=== PATIENT | male | born 1945 | race Caucasian/White ===

== ENCOUNTER 2016-09-18 15:59 | Observation (INO) | payer BC, OTHER ==
[2016-09-18] MEDS ORDERED: NS 1,000 ML IV ONE (16:07)
[2016-09-18] MEDS ORDERED: DIAZEPAM 5 MG TAB PO ONE (16:07)
[2016-09-18] MEDS ORDERED: diphenhydrAMINE 25 MG CAP PO ONE ×2 (16:07→16:43)
[2016-09-18] MEDS ORDERED: FAMOTIDINE 20 MG TAB PO ONE (16:07)
[2016-09-18] MEDS ORDERED: ASPIRIN EC 325 MG TAB PO ONE ×2 (16:07→16:44)
[2016-09-18] MEDS ORDERED: fentaNYL 100 MCG/2 ML INJ ONE (16:19)
[2016-09-18] MEDS ORDERED: IOPAMIDOL (ISOVUE-370) 150 ML BTL IV ONE (16:19)
[2016-09-18] MEDS ORDERED: LIDOCAINE 1% 30 ML SDV ONE (16:19)
[2016-09-18] MEDS ORDERED: MIDAZOLAM 2 MG/2 ML VIAL ONE (16:19)
[2016-09-18] MEDS ORDERED: FAMOTIDINE 20 MG TAB ONE (16:43)
[2016-09-18] MEDS ORDERED: DIAZEPAM 5 MG TAB ONE (16:44)
[2016-09-18] MEDS ORDERED: VERAPAMIL 5 MG/2 ML VIAL ONE (16:52)
[2016-09-18] MEDS ORDERED: HEPARIN 10,000 UNIT/10 ML MDV ONE (16:52)
[2016-09-18 17:03] LABS: % IMMATURE GRANULYOCYTES 0.4 % (0.0-1.1); ABSOLUTE IMMATURE GRANULOCYTES 0.03 10^3/uL (0.00-0.10); ADD DIFF? NO; ADD MORPH? NO; ADD SCAN? NO; ATYPICAL LYMPHOCYTE FLAG 0 (0-99); FRAGMENT RBC FLAG 0 (0-99); HEMATOCRIT 45.3 % (40.0-51.0); HEMOGLOBIN 15.6 g/dL (13.7-17.5); LEFT SHIFT FLG 0 (0-99); LIPEMIA HEMOLYSIS FLAG 90 (0-99); MEAN CELL HEMOGLOBIN 30.5 pg (27.9-34.1); MEAN CELL HEMOGLOBIN CONCENTR. 34.4 g/dL (32.4-36.7); MEAN CELL VOLUME 88.5 fL (81.5-99.8); PLATELET CLUMPS FLAG 0 (0-99); PLATELET COUNT 306 10^3/uL (150-400); RED BLOOD CELL COUNT 5.12 10^6/uL (4.40-6.38); RED CELL DISTRIBUTION WIDTH 12.3 % (11.5-15.2)
[2016-09-18 17:11] LABS: INR 0.99 (0.83-1.16)
[2016-09-18 17:30] LABS: ANION GAP 8 mEq/L (8-16); CALCIUM 9.3 mg/dL (8.5-10.4); CARBON DIOXIDE 26 mEq/l (22-31); CHLORIDE 106 mEq/L (97-110); CHOLESTEROL 156 mg/dL (140-220); CHOLESTEROL/HDL RATIO 2.48 RATIO (1.00-4.97); CREATININE 0.9 mg/dL (0.7-1.3); GLOMERULAR FILTRATION RATE > 60; GLUCOSE 80 mg/dL (70-100); HIGH DENSITY LIPOPROTEIN 63 mg/dL (40-65); LDL/HDL RATIO 1.06 RATIO (1.00-3.64); LOW DENSITY LIPOPROTEIN 67 mg/dL (80-100); NON-HIGH DENSITY LIPOPROTEIN 93 mg/dL (90-129); POTASSIUM 4.2 mEq/L (3.5-5.2); SODIUM 140 mEq/L (134-144); TRIGLYCERIDE 134 mg/dL (40-150); VERY LOW DENSITY LIPOPROTEINS 26 mg/dL (8-25)
[2016-09-18] MEDS ORDERED: HYDROCODONE/APAP 5/325 TAB PO PRN (17:43)
[2016-09-18] MEDS ORDERED: ATROPINE SULFATE 1 MG/10 ML SYR IVP PRN (17:43)
[2016-09-18] MEDS ORDERED: OXYCODONE/APAP 5/325 TAB PO PRN (17:43)
[2016-09-18] MEDS ORDERED: NITROGLYCERIN 0.4 MG BTL SL PRN (17:43)
[2016-09-18] MEDS ORDERED: ONDANSETRON 4 MG/2 ML VIAL IVP PRN (17:43)
--- NOTE | 2016-09-18 17:46 | PDDXCAT ---
Diagnostic Cath Note - . Date: 09/18/16 Physical Therapy Nurse: Milad Indication: CCC Class III and IV angina on medical treatment - Procedure Access: left wrist Procedure: left heart catheterization, coronary angiography - Materials Left Heart Cath size: 5F Left Heart Cath materials: standard multipack (JL4, JR4, pigtail) - Findings-Left Heart Catheterization LM: unobstructed LAD: LAD stent in the mid and distal vessel widely patent. Aneurysmal dilatation proximal to the stent. Principal diagonal stent widely patent. 2nd diagonal stent widely patent. LCX: Unobstructed RCA: diffuse 30% stenosis distally. EDP: 10 mm of mercury LVEF: 65 Wall motion: no regional wall motion abnormalities Complications: none Estimated blood loss: <50ml Closure method: TR Band Assessment: 1. Multivessel coronary artery disease. 2. Widely patent site of prior stenting. 3. Preserved LV systolic function with normal filling pressures. Abnormal EKG of uncertain etiology Patient Problems: Problems Problem Status Onset Status post insertion of drug-eluting stent into left anterior descending (LAD) artery Acute Coronary artery disease Acute Chest pain Acute
[2016-09-18 19:36] LABS: TROPONIN I < 0.012 ng/mL (0-0.034)
[2016-09-18 19:49] VITALS: RESP 20; TEMP 98.6; O2SAT 93
[2016-09-18 21:44] VITALS: BP 110/79; PULSE 44
== END 2016-09-18 21:56 | disposition home or self-care (01) ==
LOC: F2W 16:20
PROVIDERS: ADMIT Internal Medicine Interventional Cardiology; ATTEND Internal Medicine Interventional Cardiology
PROC: 4A020N7 Measurement of Cardiac Sampling and Pressure, Left Heart, Open Approach (ICD-10-PCS; principal; 2016-09-18)
PROC: B2151ZZ Fluoroscopy of Left Heart using Low Osmolar Contrast (ICD-10-PCS; principal; 2016-09-18)
PROC: B2111ZZ Fluoroscopy of Multiple Coronary Arteries using Low Osmolar Contrast (ICD-10-PCS; principal; 2016-09-18)
DX: I25.119 Atherosclerotic heart disease of native coronary artery with unspecified angina pectoris (principal); I11.0 Hypertensive heart disease with heart failure; E78.5 Hyperlipidemia, unspecified; R94.31 Abnormal electrocardiogram [ECG] [EKG]; Z95.5 Presence of coronary angioplasty implant and graft
CPT/HCPCS: 93458; C1769; J1644; J2250; J3010; Q9967

== ENCOUNTER 2016-10-03 08:11 | Day surgery (SDC) | payer BC, OTHER ==
[2016-10-03] MEDS ORDERED: ASPIRIN EC 325 MG TAB PO ONE (08:16)
[2016-10-03] MEDS ORDERED: FAMOTIDINE 20 MG TAB PO ONE (08:16)
[2016-10-03] MEDS ORDERED: NS 1,000 ML IV ONE (08:16)
[2016-10-03] MEDS ORDERED: diphenhydrAMINE 25 MG CAP PO ONE ×2 (08:16→08:34)
[2016-10-03] MEDS ORDERED: DIAZEPAM 5 MG TAB PO ONE (08:16)
--- NOTE | 2016-10-03 08:32 | CPEKG ---
Heart Rate: 50 RR Interval: 1200 P-R Interval: 164 QRSD Interval: 106 QT Interval: 524 QTC Interval: 478 P [place]: 63 QRS [place]: -81 T Wave [place]: -86 EKG Severity - ABNORMAL ECG - EKG Impression: SINUS RHYTHM EKG Impression: LEFT ANTERIOR FASCICULAR BLOCK EKG Impression: CONSIDER ANTEROSEPTAL INFARCT EKG Impression: ABNORMAL T, CONSIDER ISCHEMIA, DIFFUSE LEADS EKG Impression: BORDERLINE PROLONGED QT INTERVAL Electronically Signed By: Hayden Givens 03-Oct-2016 12:19:14
[2016-10-03] MEDS ORDERED: FAMOTIDINE 20 MG TAB ONE (08:34)
[2016-10-03] MEDS ORDERED: DIAZEPAM 5 MG TAB ONE (08:34)
[2016-10-03] MEDS ORDERED: ASPIRIN EC 81 MG TAB PO ONE (08:35)
[2016-10-03 08:58] LABS: % IMMATURE GRANULYOCYTES 0.5 % (0.0-1.1); ABSOLUTE IMMATURE GRANULOCYTES 0.04 10^3/uL (0.00-0.10); ADD DIFF? NO; ADD MORPH? NO; ADD SCAN? NO; ATYPICAL LYMPHOCYTE FLAG 0 (0-99); FRAGMENT RBC FLAG 0 (0-99); HEMATOCRIT 46.4 % (40.0-51.0); HEMOGLOBIN 15.8 g/dL (13.7-17.5); LEFT SHIFT FLG 0 (0-99); LIPEMIA HEMOLYSIS FLAG 90 (0-99); MEAN CELL HEMOGLOBIN 29.9 pg (27.9-34.1); MEAN CELL HEMOGLOBIN CONCENTR. 34.1 g/dL (32.4-36.7); MEAN CELL VOLUME 87.9 fL (81.5-99.8); PLATELET CLUMPS FLAG 10 (0-99); PLATELET COUNT 302 10^3/uL (150-400); RED BLOOD CELL COUNT 5.28 10^6/uL (4.40-6.38); RED CELL DISTRIBUTION WIDTH 12.5 % (11.5-15.2)
[2016-10-03] MEDS ORDERED: LIDOCAINE 1% 30 ML SDV ONE (09:00)
[2016-10-03] MEDS ORDERED: fentaNYL 100 MCG/2 ML INJ ONE (09:00)
[2016-10-03] MEDS ORDERED: MIDAZOLAM 2 MG/2 ML VIAL ONE (09:01)
[2016-10-03] MEDS ORDERED: IOPAMIDOL (ISOVUE-370) 150 ML BTL IV ONE ×2 (09:01→10:30)
[2016-10-03] MEDS ORDERED: BIVALIRUDIN 250 MG/5 ML VIAL IV ONE (09:05)
[2016-10-03] MEDS ORDERED: NITROGLYCERIN 1,500 MCG/15 ML VIAL MISC ONE (09:05)
[2016-10-03 09:24] LABS: INR 0.99 (0.83-1.16)
[2016-10-03 09:29] LABS: ANION GAP 8 mEq/L (8-16); CALCIUM 9.1 mg/dL (8.5-10.4); CARBON DIOXIDE 24 mEq/l (22-31); CHLORIDE 108 mEq/L (97-110); CHOLESTEROL 155 mg/dL (140-220); CHOLESTEROL/HDL RATIO 2.54 RATIO (1.00-4.97); CREATININE 0.9 mg/dL (0.7-1.3); GLOMERULAR FILTRATION RATE > 60; GLUCOSE 97 mg/dL (70-100); HIGH DENSITY LIPOPROTEIN 61 mg/dL (40-65); LDL/HDL RATIO 1.18 RATIO (1.00-3.64); LOW DENSITY LIPOPROTEIN 72 mg/dL (80-100); NON-HIGH DENSITY LIPOPROTEIN 94 mg/dL (90-129); POTASSIUM 4.6 mEq/L (3.5-5.2); SODIUM 140 mEq/L (134-144); TRIGLYCERIDE 110 mg/dL (40-150); VERY LOW DENSITY LIPOPROTEINS 22 mg/dL (8-25)
--- NOTE | 2016-10-03 12:01 | PDDXCAT ---
Diagnostic Cath Note - . Date: 10/03/16 Intervention: intravascular ultrasound *Procedure 1. selective coronary angiography 2. intravascular ultrasound (IVUS) of the LAD and LAD diagonal Indication: CCS II angina pectoris, abnormal EKG suggestive of ischemia, planned intravascular ultrasound of the LAD from a right femoral approach. Access: right femoral artery *Materials Left Heart Cath size: 7F Left Heart Cath materials: JL4, 0.014" Intuition Guide Wire, EBU4 Launcher, IVUS catheter *Findings-Selective Coronary Angiography LM: The left main bifurcates into an LAD and circumflex system and is free of flow-limiting disease or significant stenosis. LAD: There is an aneurysmal segment proximal to the mid LAD stent. There is LAD restenosis estimated to be 60% via IVUS just distal to the LAD aneurysm. There is no flow-limiting obstruction of previous stenting in the LAD or LAD/diagonal with LONNIE III flow angiographically. LCX: There are luminal irregularities consistent with atherosclerosis without flow-limiting disease with LONNIE III flow throughout. *Intervention A 7 Maltese EBU 3.5 guide catheter was used for guide catheter support. Angiomax bolus was given with a documented activated clotting time > 250 seconds. A 0.014 " Intuition Guide Wire was inserted into the distal LAD diagonal under directly fluoroscopic and angiographic guidance. Intravascular ultrasound catheter was used to perform IVUS in the first LAD diagonal. There was no evidence of flow- limiting disease. A second Intuition Guide Wire was advanced into the distal LAD. IVUS was performed in mid and proximal LAD proper. Maximal luminal stenosis was 60% in the mid LAD just distal to the LAD aneurysm. There was LONNIE III flow angiographically except at the site of the aneurysm where there was a delay in clearing of contrast from the aneurysmal segment. *Summary Complications: None Estimated blood loss: <50ml Closure method: Angioseal Assessment/Conclusion: 1. Multi-vessel [place] vessel coronary artery disease without flow-limiting obstruction. Intravascular ultrasound was performed in the mid and proximal LAD and principal diagonal branch. Maximal luminal stenosis was 60% in the LAD proper. 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 There is contrast- streaming below this lesion with abnormal flow-characteristics. If the patient' s angina does not improve or there is restenosis of the LAD and LAD diagonal stents, a CABG with SIMONS-LAD and rSVG to the diagonal would likely be a better option vs. high-risk bifurcation stenting. We could consider a trial of long- acting nitrates as an outpatient to alleviate symptoms with exertion. Patient Problems: Problems Problem Status Onset Chest pain Acute Coronary artery disease Acute Status post insertion of drug-eluting stent into left anterior descending (LAD) artery Acute
== END 2016-10-03 16:37 | disposition home or self-care (01) ==
LOC: FCATH 08:11
PROVIDERS: ATTEND Internal Medicine Cardiovascular Disease
PROC: 4A023N7 Measurement of Cardiac Sampling and Pressure, Left Heart, Percutaneous Approach (ICD-10-PCS; principal; 2016-10-03)
PROC: B2111ZZ Fluoroscopy of Multiple Coronary Arteries using Low Osmolar Contrast (ICD-10-PCS; principal; 2016-10-03)
PROC: B245ZZ3 Ultrasonography of Left Heart, Intravascular (ICD-10-PCS; principal; 2016-10-03)
PROC: B2151ZZ Fluoroscopy of Left Heart using Low Osmolar Contrast (ICD-10-PCS; principal; 2016-10-03)
DX: T82.857A Stenosis of other cardiac prosthetic devices, implants and grafts, initial encounter (principal); I25.41 Coronary artery aneurysm; I25.10 Atherosclerotic heart disease of native coronary artery without angina pectoris; R07.89 Other chest pain; I10 Essential (primary) hypertension; E78.2 Mixed hyperlipidemia; E78.5 Hyperlipidemia, unspecified
CPT/HCPCS: 92978; 93005; C1753; C1769; C1887; C1760; J0583; J1644; J2250; J3010; Q9967

== ENCOUNTER 2017-10-29 09:14 | Day surgery (SDC) | payer BC ==
[2017-10-29] MEDS ORDERED: ceFAZolin 2 GM/DEXTROSE 100 ML IV ONE (09:24)
[2017-10-29] MEDS ORDERED: LR 1,000 ML IV ONE (09:25)
[2017-10-29] MEDS ORDERED: LIDOCAINE 1% 2 ML INJ ID PRN (09:25)
--- NOTE | 2017-10-29 09:34 | PDHPUP ---
History & Physical Update H&P update statement: This history and physical update is based on an assessment of the patient which was completed after admission or registration (within 24 hours), but prior to the surgery/procedure. H&P update: H&P reviewed & patient examined, no change in patient's condition since H&P completed
[2017-10-29] MEDS ORDERED: EPINEPHrine 1 MG/ML INJ ONE (09:55)
[2017-10-29] MEDS ORDERED: BUPIVACAINE 0.25% 30 ML SDV ONE (09:55)
--- NOTE | 2017-10-29 09:58 | PDANEPAE ---
ANE History of Present Illness 72 year old male w/ CAD (s/p cardiac stents x4, off plavix but taking daily ASA ) presents for robotic assisted laparoscopic inguinal hernia repair. ANE Past Medical History - Cardiovascular History Hx Hypertension: Yes Hx Arrhythmias: No Hx Chest Pain: No Hx Coronary Artery / Peripheral Vascular Disease: Yes Hx CHF / Valvular Disease: No Hx Palpitations: No Cardiovascular History Comment: NTG-LAST USE WAS 4-5 MOS AGO. DENIES CHEST PAIN. - Pulmonary History Hx COPD: No Hx Asthma/Reactive Airway Disease: No Hx Recent Upper Respiratory Infection: No Hx Oxygen in Use at Home: No Hx Sleep Apnea: No Sleep Apnea Screening Result - Last Documented: Positive - Neurologic History Hx Cerebrovascular Accident: No Hx Seizures: No Hx Dementia: No - Endocrine History Hx Diabetes: No Obesity: no - Renal History Hx Renal Disorders: No - Liver History Hx Hepatic Disorders: No - Neurological & Psychiatric Hx Hx Neurological and Psychiatric Disorders: Yes Neurological / Psychiatric History Comment: PERIODIC LOW BACK PAIN. - Cancer History Hx Cancer: Yes Cancer History Comment: BASAL CELL -SKIN - Congenital Disorder History Hx Congenital Disorders: No - GI History Hx Gastrointestinal Disorders: No Gastrointestinal History Comment: OCC HEARTBURN - Other Health History Other Health History: HAYFEVER-USES NASAL SPRAY;. SEE BELOW RE INSECT BITES FROM BED BUGS: ELEVATED TEMP,FATIGUE X 1WK-MID September. - Chronic Pain History Chronic Pain: No - Surgical History Prior Surgeries: R KNEE -STEM CELL PROCEDURE;. ESOPHAGEAL DILATATION X2;. HEART CATHS;. E P STUDY- DR CREWS ;(NO ABLATION) EMILY Review of Systems Review of systems is: negative Review of Systems: - Exercise capacity Exercise capacity: >=4 METS METS (RN): 4 METS ANE Patient History - Allergies Allergies/Adverse Reactions: No Allergies [NKDA] Allergy (Verified 10/23/17 15:31) - Home Medications Home medications: home medication list seen and reviewed Home Medications: Aspirin [Aspirin 81mg (*)] 81 mg PO DAILY 09/18/16 [Last Taken 10/29/17 08:00] Atorvastatin Calcium [Lipitor 20 mg (*)] 20 mg PO DAILY 09/18/16 [Last Taken 09/11] Clopidogrel Bisulfate [Plavix (*)] 75 mg PO DAILY 09/18/16 [Last Taken 10/25/17 08:00] Fluticasone Nasal [Flonase Nasal Cameron (RX)] 1 sprays EACHNARE DAILY 09/18/16 [ Last Taken 10/29/17 08:00] Herbals/Supplements -Info Only 1 ea PO DAILY 09/18/16 [Last Taken 10/25/17] Lisinopril [Zestril 20 mg (*)] 20 mg PO DAILY 09/18/16 [Last Taken 10/29/17 08: 00] Nitroglycerin [Nitrostat 0.4 mg (*)] 0.4 mg SL Q5M PRN 09/18/16 [Last Taken 06/13] - NPO status NPO Since - Liquids (Date): 10/29/17 NPO Since - Liquids (Time): 07:00 NPO Since - Solids (Date): 10/28/17 NPO Since - Solids (Time): 19:00 - Anes Hx Anes Hx: no prior problems - Smoking Hx Smoking Status: Former smoker Marijuana use: No - Alcohol Use Alcohol Use: Occasionally - Family Anes Hx Family Anes Hx: neg - N/A ANE Labs/Vital Signs - Vital Signs Vital Signs: reviewed preoperatively; see RN documention for details Blood Pressure: 131/79 Heart Rate: 47 Respiratory Rate: 16 O2 Sat (%): 93 Height: 187.96 cm Weight: 94.347 kg ANE Physical Exam - Airway Neck exam: FROM Mallampati Score: Class 1 Mouth exam: normal dental/mouth exam - Pulmonary Pulmonary: no respiratory distress - Cardiovascular Cardiovascular: regular rate and rhythym - ASA Status ASA Status: III ANE Anesthesia Plan Anesthesia Plan: general endotracheal anesthesia Total IV Anesthesia: No
[2017-10-29] MEDS ORDERED: fentaNYL 100 MCG/2 ML INJ ONE (10:16)
[2017-10-29] MEDS ORDERED: PROPOFOL 200 MG/20 ML VIAL ONE (10:17)
[2017-10-29] MEDS ORDERED: ROCURONIUM 50 MG/5 ML VIAL ONE (10:18)
[2017-10-29] MEDS ORDERED: LR 500 ML IV PRN (10:45)
[2017-10-29] MEDS ORDERED: ONDANSETRON 4 MG/2 ML VIAL IVP PRN (10:45)
[2017-10-29] MEDS ORDERED: fentaNYL 100 MCG/2 ML INJ IVP PRN (10:45)
[2017-10-29] MEDS ORDERED: NALOXONE HCL 0.4 MG/ML INJ IVP PRN (10:45)
[2017-10-29] MEDS ORDERED: HYDROmorphONE/DILAUDID 2 MG/ML INJ IVP PRN (10:45)
[2017-10-29] MEDS ORDERED: ONDANSETRON 4 MG/2 ML VIAL ONE (10:59)
[2017-10-29] MEDS ORDERED: LIDOCAINE 2% 100 MG/5 ML SYR ONE (10:59)
[2017-10-29] MEDS ORDERED: SUGAMMADEX SODIUM 200 MG/2 ML VIAL IVP ONE (11:00)
[2017-10-29] MEDS ORDERED: DEXAMETHASONE 4 MG/ML VIAL ONE (11:00)
--- NOTE | 2017-10-29 12:03 | POSTOPPROG ---
Post Op Note Date of Operation: 10/29/17 Surgeon: Liborio Perez Sub Plant Manager: SIDRA Rodríguez Anesthesiologist: Jose Anesthesia: GET(General Endotracheal) Pre-op Diagnosis: right inguinal hernia Post-op Diagnosis: bilateral inguinal hernias Procedure: robotic assisted lap annamaria inguinal hernia with mesh Findings: annamaria indirect defects Inf/Abcess present in the surg proc area at time of surgery?: No EBL: Minimal
[2017-10-29 13:17] VITALS: BP 126/85
--- NOTE | 2017-10-29 15:34 | GOP ---
[f rep st] OPERATIVE REPORT DATE OF OPERATION: 10/29/2017 SURGEON: Liborio Perez MD PIPE ORGAN TECHNICIAN: SIDRA Muir. ANESTHESIA: General endotracheal. ANESTHESIOLOGIST: Dr. Tj Garcia. PREOPERATIVE DIAGNOSIS: Right inguinal hernia. POSTOPERATIVE DIAGNOSIS: Bilateral direct inguinal hernias. PROCEDURE PERFORMED: Robotic assisted laparoscopic bilateral inguinal hernia repair with mesh. FINDINGS: Bilateral indirect hernias successfully reduced, repaired with Bard 3D Light large-size mesh. SPECIMENS: None. ESTIMATED BLOOD LOSS: 10 cc. DESCRIPTION OF PROCEDURE: The patient was greeted in the preoperative suite, and once again, risks, benefits, and alternatives were discussed. Consent was signed. He was then brought back to the operative suite, placed on the OR table in supine position. After all anesthesia machines, including SCDs were on and functioning, a [employer] time-out was performed. After successful induction of general anesthesia, the patient's abdomen was prepped and draped in typical sterile fashion. I entered the abdomen via a supraumbilical cutdown through which the Veress needle was passed. I achieved pneumoperitoneum to 15 mmHg CO2, which was well tolerated by the patient. Through this, I inserted my 8 mm trocar. Once successfully in the abdomen, I inserted 2 additional 8 mm trocars, 1 in the right and 1 in the left upper quadrant, both under direct visualization. The patient was then placed in Trendelenburg position. The robot was docked. I turned my attention first toward the patient's right groin. A preperitoneal flap was made from the right lower quadrant all the way to past the midline. I developed my flap all the way to Javid's ligament medially and developed the flap all the way to the lateral extent of my dissection. The direct hernia sac was cleared of all cord structures and successfully dissected down to the visceral sac. Hemostasis was achieved with cautery throughout this process. After making a sufficient flap and pocket for my mesh, I interrogated both the femoral and indirect hernia spaces and found no significant findings. A large size piece of mesh was then brought into the operative field. It was sutured to Javid's ligament medially, around the defect laterally, and around the inferior epigastric vessels. The peritoneal flap was then closed with a running V-Loc suture. I then turned my attention toward the left side where a direct hernia was encountered. In the same fashion, a flap was developed, carried down. The hernia sac was then successfully dissected out. Once a sufficient space had been made, I interrogated both the femoral obturator and indirect spaces and found no significant findings. Again, a large left side piece of Bard 3D mesh was brought in, anchored to Javid's ligament, as well as either side of the inferior epigastric vessels. The flap was closed in the same fashion. Pneumoperitoneum was then evacuated. The robot was undocked. The skin was closed with Monocryl, over which Dermabond was placed. The patient was then extubated in the operative suite and taken to the PACU in satisfactory condition. DRAINS: None. COUNTS: All counts were reported as correct x2. /[id number]/MODL MTDD
--- NOTE | 2017-10-29 15:39 | POSTANESTH ---
Post Anesthetic Evaluation Cardiovascular Status: Normal, Stable, Similar to Pre-Op Cond Respiratory Status: Normal, Stable, Similar to Pre-op Cond. Level of Consciousness/Mental Status: Can Participate in Eval, Alert and Oriented Pain Control: Adequate, Prn Tx Ordered Nausea/Vomiting Control: Adequate, Prn Tx Ordered Complications Possibly Related to Anesthesia: None Noted
== END 2017-10-29 13:16 | disposition home or self-care (01) ==
LOC: FSGY 09:14
PROVIDERS: ATTEND Surgery
PROC: 0YUA4JZ Supplement Bilateral Inguinal Region with Synthetic Substitute, Percutaneous Endoscopic Approach (ICD-10-PCS; principal; 2017-10-29 10:45)
DX: K40.20 Bilateral inguinal hernia, without obstruction or gangrene, not specified as recurrent (principal); Z95.5 Presence of coronary angioplasty implant and graft; Z87.891 Personal history of nicotine dependence
CPT/HCPCS: C1781; J0171; J0690; J1100; J2001; J2405; J2704; J3010